=== PATIENT | female | born 1970 | race African-American/Black ===

== ENCOUNTER 2016-12-15 14:21 | Inpatient (IN) | payer OTHER ==
[~2016-12-15] VITALS: Ht 157.5 cm; Wt 86.2 kg
--- NOTE | 2016-12-15 14:29 | NUR ---
PT STATES SHE IS HAVING LOW/MIDDLE BACK PAIN SINCE WEDNESDAY. PT HAS BEEN TAKING ALEEVE FOR THE PAIN WITH LITTLE EFFECT. PT STATES SHE DOES NOT REMEMBER ANY INJURY AND STATES SHE THINKS IT MAY BE HER KIDNEYS. PT REPORTS SHE HAS LUPUS.
[2016-12-15 16:49] LABS: ABSOLUTE BASOPHIL COUNT 0 /CUMM (0.0-0.2); ABSOLUTE EOSINOPHIL COUNT 0.1 /CUMM (0.0-0.7); ABSOLUTE GRANULOCYTE CT 3.8 /CUMM (1.4-6.5); ABSOLUTE LYMPH COUNT 1.7 /CUMM (1.2-3.4); ABSOLUTE MONOCYTE COUNT 0.4 /CUMM (0.10-0.60); BASOPHIL % 0.6 % (0.0-2.0); EOSINOPHIL % 1.2 % (0-5); GRANULOCYTE % 63.2 % (42.2-75.2); HEMATOCRIT 32.5 % (37-47); MEAN CORPUSCULAR HGB 25.5 PG (27.0-31.0); MEAN CORPUSCULAR HGB CONC 32.3 G/DL (33.0-37.0); MEAN CORPUSCULAR VOLUME 78.9 FL (81.0-99.0); MEAN PLATELET VOLUME 13.3 FL (7.4-10.4); PLATELET COUNT 145 /CUMM (130-400); RBC DISTRIBUTION WIDTH 16.5 % (11.5-14.5); RED BLOOD CELL CT 4.12 /CUMM (4.20-5.40); WHITE BLOOD CELL COUNT 6.1 /CUMM (4.8-10.8)
--- NOTE | 2016-12-15 16:53 | NUR ---
LINE ESTABLISHED #20 TO [facility]. LABS SENT (LAV,SST,EXTRA BLUE.) MEDICATED PER EMAR.
--- NOTE | 2016-12-15 17:34 | ED GI/GU/ABDOMINAL COMPLAINT ---
History of Present Illness General Chief Complaint: Low Back Pain/Injury Stated Complaint: LOW/MIDDLE BACK PAIN Source: patient Exam Limitations: no limitations Allergies Coded Allergies: No Known Allergies (12/15/16) Reconcile Medications Alprazolam 0.5 MG TABLET 1 TAB PO PRN ANXIETY (Reported) Escitalopram Oxalate 20 MG TABLET 1 TAB PO DAILY MENTAL HEALTH (Reported) Ferrous Sulfate (IRON) 325 MG (65 MG IRON) TABLET 1 TAB PO DAILY SUPPLEMENT ( Reported) Multivitamin (Multi-Day Vitamins) 1 EACH TABLET 1 TAB PO DAILY SUPPLEMENT ( Reported) Triage Note: PT STATES SHE IS HAVING LOW/MIDDLE BACK PAIN SINCE WEDNESDAY. PT HAS BEEN TAKING ALEEVE FOR THE PAIN WITH LITTLE EFFECT. PT STATES SHE DOES NOT REMEMBER ANY INJURY AND STATES SHE THINKS IT MAY BE HER KIDNEYS. PT REPORTS SHE HAS LUPUS. Triage Nurses Notes Reviewed? yes ? N Is pt currently ? No HPI: This patient is a 46-year-old female who presented to the emergency department today for evaluation of back pain which started over the last couple of days. The patient reported that the pain has been worsening and gets up to a 10 out of 10. The pain is sharp and throbbing. It is located on both sides of her lower back. The patient denied any radiation of the pain. She reported that the pain has been constant since onset. She reported some intermittent nausea, but not currently. She denied any abdominal pain, vomiting, urinary burning, urgency, frequency, blood in the urine, fevers, chills, chest pain, or difficulty breathing. The patient tried taking 400 mg of Advil without any relief of her symptoms. The patient reported, "I am worried that it is my kidneys." She denied any trauma or falls. (KD REBOLLAR,SCOTT) Vital Signs & Intake/Output Vital Signs & Intake/Output Vital Signs Date Time Temp Pulse Resp B/P Pulse O2 O2 Flow FiO2 Ox Delivery Rate 12/16 1202 98.0 60 20 120/78 93 Room Air Room Air 12/16 1002 97.4 74 16 122/74 98 Room Air 12/16 0832 97.0 70 20 103/64 96 Room Air 12/16 0706 96.6 61 16 109/62 97 Room Air 12/16 0242 96.7 76 20 165/109 96 Room Air 12/15 2337 67 18 142/88 99 Room Air 12/15 1944 97.2 64 18 129/81 99 Room Air 12/15 1731 97.3 20 160/93 ED Intake and Output 12/16 0000 12/15 1200 Intake Total 1000 Output Total Balance 1000 Intake, IV 1000 Patient 190 lb Weight Past History Travel History Traveled to [place] past 21 day No Medical History Any Pertinent Medical History? see below for history Renal: LUPUS Blood Disorders: anemia Surgical History Surgical History: non-contributory Psychosocial History What is your primary language Armenian Tobacco Use: Current Daily Use Daily Tobacco Use Amount/Type: => 5 Cigarettes daily ETOH Use: occasional use Illicit Drug Use: marijuana Family History Hx Contributory? No (SCOTT YI PA-C) Review of Systems Review of Systems Constitutional: Reports: no symptoms. EENTM: Reports: no symptoms. Respiratory: Reports: no symptoms. Cardiovascular: Reports: no symptoms. GI: Reports: no symptoms. Genitourinary: Reports: no symptoms. Musculoskeletal: Reports: see HPI. Skin: Reports: no symptoms. Neurological/Psychological: Reports: no symptoms. All Other Systems: Reviewed and Negative (SCOTT YI PA-C) Physical Exam Physical Exam Gastrointestinal: normal bowel sounds, soft, non-tender, no organomegaly, NO REBOUND OR GUARDING. nO PERITONEAL SIGNS Comments: Well-developed well-nourished person in no acute distress HEENT: Normal EENT exam, head normocephalic, moist mucous membranes Neck: Supple, no lymphadenopathy Back: Normal inspection with no bony or muscular deformities. No midline tenderness. Bilateral CVA tenderness Cardiovascular: Regular rate and rhythm with no murmurs, rubs, or gallops Respiratory: Chest nontender. No respiratory distress. Breath sounds clear to auscultation bilaterally Extremity: Normal and equal pulses Neuro: Alert oriented x3, cranial nerves II through XII grossly intact. Skin: No appreciable rash on exposed skin, skin is warm and dry. Psych: Mood and affect is normal Core Measures ACS in differential dx? No Severe Sepsis Present: No Septic Shock Present: No (SCOTT YI PA-C) Progress Differential Diagnosis: AMI, appendicitis, biliary colic, bowel obstruction, colon cancer, cholecystitis, diverticulitis, gastritis, inflamm bowel dis, intrauterine , kidney stone, Charmaine-Landy tear, pancreatitis, PUD/GERD, perforated viscous, UTI/pyelo Diagnostic Imaging: Viewed by Me: CT Scan. Discussed w/RAD: CT Scan. Radiology Impression: PATIENT: FLAVIA PALMER PRESENT AGE: 46 PATIENT ACCOUNT NO: [id number] : 70 LOCATION: [facility] ORDERING PHYSICIAN: SCOTT YI PA-C SERVICE DATE: 12/15/16 EXAM TYPE: CAT - CT ABD & PELVIS W/O IV CONTRAS CT ABDOMEN AND PELVIS WITHOUT CONTRAST CLINICAL INFORMATION: Bilateral flank pain. COMPARISON: None available TECHNIQUE: Multidetector volumetric imaging was performed from the superior aspect of the liver through the pubic symphysis. Sagittal and coronal reformatted images were obtained on the technologist's workstation. FINDINGS: The lung bases are clear. Limited evaluation of the unenhanced liver, spleen, adrenal glands, gallbladder, and pancreas reveals no definite abnormality.The kidneys are symmetric in size without evidence of hydronephrosis or nephrolithiasis. Postoperative changes following gastric bypass with surgical sutures seen along the greater curvature of the stomach. The distal aspect of the stomach is distended with ingested debris. The large and small bowel are normal in caliber without evidence of mechanical obstruction. There is sigmoid diverticulosis and there are mild inflammatory changes adjacent to the sigmoid colon on image 56 of series 2, concerning for acute diverticulitis. The appendix is normal. There is no free air and there is no intra-abdominal free fluid. No mesenteric or retroperitoneal adenopathy. The pelvic viscera are normal. Surgical clips along the fallopian tubes bilaterally. No pelvic adenopathy. No free fluid within the pelvis. There are no acute osseous abnormalities. There is a small bowel containing lower ventral abdominal wall hernia without obstruction. Mild stranding of the fat within the hernia sac that is nonspecific. IMPRESSION: - Imaging findings suggest acute diverticulitis involving the proximal sigmoid colon. No pericolonic abscess and no free air. - There is a small bowel containing lower ventral abdominal wall hernia without obstruction. Mild stranding of the fat within the hernia sac that is nonspecific. - There are postoperative changes following gastric bypass surgery. The distal aspect of the stomach is distended with ingested material. There is no bowel obstruction. - No renal calculi. No hydroureteronephrosis. DICTATED BY: INOCENTE DE LUNA MD DATE/TIME DICTATED:12/15/161812 KETTLE COORDINATOR:VENTURA DATE/TIME TRANSCRIBED:12/15/161812 CONFIDENTIAL, DO NOT COPY WITHOUT APPROPRIATE AUTHORIZATION. <Electronically signed in Other Vendor System> SIGNED BY: INOCENTE DE LUNA MD 12/15/16 1822 Initial ED EKG: none Hand-Off Endorsed To: INOCENTE PAVON MD Pending: other Comments: 12/15/2016 6:35:45 PM: This patient has uncomplicated diverticulitis. I discussed this patient with Dr. FRANCOIS. We will give this patient 1 dose of IV Unasyn here in the emergency department. I was at the patient's bedside to update her on these results. She reported that she is still in significant pain after 4 mg of IV morphine. 12/15/2016 7:47:13 PM: Patient is still reporting pain after IV Dilaudid. Discussed this patient with Dr. Pavon. Recommended IV Toradol. 12/15/2016 9:35:46 PM: The patient reported that she is still having significant discomfort. Would like this patient to stay as an ED observation for pain management and IV antibiotics. She'll be discharged in the morning with by mouth antibiotics and pain medication. Have paged on-call case management to times to discuss this with them, but have not received a call back at this time. 12/15/2016 9:46:07 PM: I spoke with on-call trimming caser, Lisa. She agreed to ED observation. (KD REBOLLAR,SCOTT) Plan of Care: Orders Procedure Date/time Status Regular Diet 12/17 L Active Regular Diet 12/16 B Active Teach/Educate 12/16 1206 Active Nutritional Intake, Monitor 12/16 1206 Active Isolation 12/16 1206 Active Patient Care Conference 12/16 1206 Active Pathway - chart 12/16 1041 Active House Staff 12/16 1041 Active Code Status 12/16 1041 Active Patient Data 12/16 1026 Active OXYGEN SETUP (GEN) 12/16 0945 Active Saline Lock 12/16 0945 Active Admit to inpatient 12/16 0945 Active Vital Signs 12/16 0945 Active Activity/Ambulation 12/16 0945 Active Code Status 12/16 0945 Complete Discharge Patient 12/16 0942 Active VTE Mechanical Prophylaxis 12/16 UNK Active MRI-LUMBAR SPINE W & W/O CHOLO 12/[address] in observation 12/15 2249 Active Patient Data 12/15 2249 Active Intake & Output 12/15 1652 Active Add-on Test (ER Only) 12/15 1635 Active COMPREHENSIVE METABOLIC PANEL 12/15 1551 Complete CBC WITHOUT DIFFERENTIAL 12/15 1551 Complete Current Medications Sig/Immanuel Start time Last Medication Dose Stop Time Status Admin Alprazolam 0.5 MG BID 12/16 2200 AC (Xanax) 12/23 2159 Ampicillin Sodium/ 3,000 MG Q6H 12/16 1600 AC Sulbactam Sodium (Unasyn) Sodium Chloride 100 ML (Normal Saline 0.9%) Diphenhydramine HCl 25 MG ONCE ONE 12/16 1500 CAN (Benadryl) 12/16 1501 Escitalopram Oxalate 20 MG DAILY 12/16 1315 AC (Lexapro) Acetaminophen 650 MG Q6P PRN 12/16 1045 AC (Tylenol) Acetaminophen/ 1 TAB Q6P PRN 12/16 1045 AC Hydrocodone Bitart (Vicodin) Laboratory Tests 12/15/16 1632: Anion Gap 8, Estimated GFR 60, BUN/Creatinine Ratio 18.0, Glucose 83, Calcium 9.0, Total Bilirubin 0.5, AST 21, ALT 25, Alkaline Phosphatase 68, Total Protein 6.8, Albumin 3.7, Globulin 3.1, Albumin/Globulin Ratio 1.2, CBC w Diff NO MAN DIFF REQ, RBC 4.12 L, MCV 78.9 L, MCH 25.5 L, RDW 16.5 H, MPV 13.3 H, Gran % 63.2, Lymphocytes % 28.1, Monocytes % 6.9, Eosinophils % 1.2, Basophils % 0.6, Absolute Granulocytes 3.8, Absolute Lymphocytes 1.7, Absolute Monocytes 0.4, Absolute Eosinophils 0.1, Absolute Basophils 0, PUBS MCHC 32.3 L 12/15/16 1551: Urine Test Cancelled Departure Departure Condition: Stable Referrals: DIPTI TELLO,ALISA CORTEZ MD,ADE (PCP/Family) Additional Instructions: Take antibiotic as prescribed and for its full duration. Take tramadol as prescribed for pain. This medication may make you drowsy. Follow-up with your primary care physician. Return for any worsening symptoms or concerns. Please also call to make an appointment with the forestry faculty member whose information has been provided to you in this packet. Departure Forms: Customer Survey General Discharge Information Observation Note Physician Advisor Notified: LINSEY TELLO,IVIS Monae Place Patient In: ED Observation Rationale for Observation: My rational for observation is as follows [this patient is a 46-year-old female with a past medical history including lupus and anemia who presents to the emergency department today with back pain. Uncomplicated diverticulitis. This patient has received multiple doses of pain medication without any relief of her discomfort and pain. This patient warrants an ED observation for pain management and IV antibiotics. Close monitoring and trend labs as warranted.]. (KD REBOLLAR,SCOTT) Departure Time of Disposition: 946 Disposition: STILL A PATIENT Clinical Impression Primary Impression: Diverticulitis Qualifiers: Diverticulitis site: unspecified part of intestinal tract Diverticulitis bleeding: without bleeding Diverticulitis complication: without perforation or abscess Qualified Code: K57.92 - Diverticulitis of intestine, part unspecified, without perforation or abscess without bleeding Secondary Impressions: Microscopic hematuria Admission Note Spoke With: SARINA TELLO,BRIELLE Documentation of Exam: Documentation of any treatments & extenuating circumstances including Concerns Regarding Discharge (functional status, medication knowledge or non-compliance, living conditions, etc.) that warrant an admission rather than observation: IV antibiotics IV analgesia serial lab exam medication adjustment continuing care discharge planning PA/FRUIT STUFFER Co-Sign Statement Statement: ED Attending supervision documentation- x I saw and evaluated the patient. I have also reviewed all the pertinent lab results and diagnostic results. I agree with the findings and the plan of care as documented in the PA's/FRUIT STUFFER's documentation. [] I have reviewed the ED Record and agree with the PA's/FRUIT STUFFER's documentation. [] Additions or exceptions (if any) to the PAs/FRUIT STUFFER's note and plan are summarized below: [] (PRISCILA TELLO,SAMM) ED Attending Observation Initial Observation Note: I have seen and personally examined FLAVIA PALMER on 12/15/16 at 2250. I agree with the current emergency department documentation. The disposition (admission or discharge) is uncertain at this time, she needs a period of observation for the following reason(s): Intractable pain secondary to acute diverticulitis The ED Nurse caring for this patient has been personally informed as to what the patient is being observed for. (YANETH TELLO,INOCENTE Ovalle) Observation Re-Evaluation: I have reevaluated FLAVIA PALMER on 12/16/16 at 0946. The physical findings that support the continued need to observe this patient include still with intractable right flank pain. Observation Discharge: I have reevaluated FLAVIA PALMER on 12/16/16 at 0946. The patient is: (): Stable for discharge (x): To be admitted to Nursing Floor (): To be placed in Observation on Nursing Floor (): For transfer to other facility The patient was being observed for intractable pain due to diverticulitis As a result of that observation, I have determined will require hospitalization. (SAMM FRANCOIS MD) (): Stable for discharge (x): To be admitted to Nursing Floor (): To be placed in Observation on Nursing Floor (): For transfer to other facility The patient was being observed for intractable pain due to diverticulitis As a result of that observation, I have determined will require hospitalization. (SAMM FRANCOIS MD)
--- NOTE | 2016-12-15 17:45 | NUR ---
PT MEDICATED PER EMAR FOR PAIN. WAITING FOR CAT SCAN.
--- NOTE | 2016-12-15 18:29 | CT SCAN REPORT ---
CT ABDOMEN AND PELVIS WITHOUT CONTRAST CLINICAL INFORMATION: Bilateral flank pain. COMPARISON: None available TECHNIQUE: Multidetector volumetric imaging was performed from the superior aspect of the liver through the pubic symphysis. Sagittal and coronal reformatted images were obtained on the technologist's workstation. FINDINGS: The lung bases are clear. Limited evaluation of the unenhanced liver, spleen, adrenal glands, gallbladder, and pancreas reveals no definite abnormality.The kidneys are symmetric in size without evidence of hydronephrosis or nephrolithiasis. Postoperative changes following gastric bypass with surgical sutures seen along the greater curvature of the stomach. The distal aspect of the stomach is distended with ingested debris. The large and small bowel are normal in caliber without evidence of mechanical obstruction. There is sigmoid diverticulosis and there are mild inflammatory changes adjacent to the sigmoid colon on image 56 of series 2, concerning for acute diverticulitis. The appendix is normal. There is no free air and there is no intra-abdominal free fluid. No mesenteric or retroperitoneal adenopathy. The pelvic viscera are normal. Surgical clips along the fallopian tubes bilaterally. No pelvic adenopathy. No free fluid within the pelvis. There are no acute osseous abnormalities. There is a small bowel containing lower ventral abdominal wall hernia without obstruction. Mild stranding of the fat within the hernia sac that is nonspecific. IMPRESSION: - Imaging findings suggest acute diverticulitis involving the proximal sigmoid colon. No pericolonic abscess and no free air. - There is a small bowel containing lower ventral abdominal wall hernia without obstruction. Mild stranding of the fat within the hernia sac that is nonspecific. - There are postoperative changes following gastric bypass surgery. The distal aspect of the stomach is distended with ingested material. There is no bowel obstruction. - No renal calculi. No hydroureteronephrosis.
--- NOTE | 2016-12-15 18:39 | NUR ---
PA KD TO BEDSIDE TO BEDSIDE TO DISCUSS RESULTS AND POC.
--- NOTE | 2016-12-15 19:06 | NUR ---
PT MEDICATED PER EMAR.
[2016-12-15] MEDS ORDERED: ESCITALOPRAM OX20 MG PO (19:11)
[2016-12-15] MEDS ORDERED: IRON325 M3 PO (19:11)
[2016-12-15] MEDS ORDERED: MULTI-DAY VITA1 EACH PO (19:12)
[2016-12-15] MEDS ORDERED: ALPRAZOLAM0.5 M4 PO (19:12)
--- NOTE | 2016-12-15 20:38 | NUR ---
PT MEDICATED PER EMAR FOR CONTINUED PAIN. PT REPORTS MINIMAL RELIEF WITH PAIN AT THIS TIME. NURSING WILL CONTINUE TO MONITOR.
--- NOTE | 2016-12-15 21:13 | NUR ---
PT ASSISTED TO BEDSIDE COMMODE. PT CONTINUES TO MOVE SLOWLY AND REPORTS LITTLE RELIEF WITH PAIN AFTER PAIN MEDICATION.
[2016-12-15] MEDS ORDERED: AUGMENTIN 500-1 EACH PO (21:24)
[2016-12-15] MEDS ORDERED: TRAMADOL HCL50 M1 PO (21:24)
--- NOTE | 2016-12-15 22:22 | NUR ---
PT MOVED TO ROOM 7. PT VERBALIZES UNDERSTANDING OF POC AND ED OBS STATUS.
--- NOTE | 2016-12-16 02:55 | NUR ---
PATIENT STATES CURRENT PAIN 10/10, BP ELEVATED. MD AWARE. PATIENT PRN ORDER FOR MORPHINE (Q4H) NOT DUE UNTIL APPROX 1 HOUR. PATIENT MEDICATED W/ TORADOL PER ONE TIME ORDER PLACED BY MD WOLFE. TOLERATED WELL. PATIENT HAS CALL YANETH AT BEDSIDE.
--- NOTE | 2016-12-16 03:46 | NUR ---
PT UNABLE TO GET COMFORTABLE IN BED AND COMPLAINING OF 10/10 PAIN. PT MEDICATED WITH 6MG MORPHINE IV PER PRN ORDER.
--- NOTE | 2016-12-16 05:54 | NUR ---
PT RESTING ON STRETCHER. NORMAL RR NOTED. WILL CONTINUE TO MONITOR.
--- NOTE | 2016-12-16 07:19 | NUR ---
ASSUMED CARE AT THIS TIME, PT AWAKE ALERT AND ORIENTED, COMPLAINS OF ALL OVER ABD PAIN 8/10 AT THIS TIME , CRAMPING IN NATURE AND RADIATES INTO HER BACK, DENIES N/V AT THIS TIME, ABLE TO TOLERATE FLUIDS THROUGH OUT THE NIGHT. MEDICATED AT THIS TIME WITH PRN MORPHINE FOR PAIN
--- NOTE | 2016-12-16 08:25 | NUR ---
PT RESTING ON STRETCHER , STATES THAT PAIN 3/10 AT THIS TIME. CALL LIGHT IN REACH , FOOD TRAY AT BEDSIDE , PT STATES THAT SHE HAS NO APPETITE AT THIS TIME
--- NOTE | 2016-12-16 10:01 | NUR ---
DR FRANCOIS AT BEDSIDE AND DISCUSSED PLAN OF CARE WITH PT, PT AWARE THAT SHE IS TO BE ADMITTED TO HOSPITAL , IV UNASYN INFUSING AT THIS TIME, PT MEDICATED WITH VALIUM AND MORPHINE PER ORDER.
--- NOTE | 2016-12-16 10:33 | History & Physical ---
RAJEEV PURCELL MD 12/16/16 1033: General Information and HPI MD Statement: I have seen and personally examined FLAVIA PALMER and documented this H&P. The patient is a 46 year old F who presented with a patient stated chief complaint of []. 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 The patient being started 8 on 10 in the lower back area that was radiating towards the other side. She denied any numbness or tingling in the legs or any urinary or fecal incontinence. The patient made an appointment for her primary care physician yesterday but considering the pain was excruciating she decided to come to the emergency department for further evaluation. In the ER the patient had an abdominal CAT scan to rule out kidney stones which later showed acute diverticulitis in the sigmoid colon. She was evaluated and plans to be discharged from ER but then her pain was persistent and hence it was decided to admit her for 24 hours for further evaluation. The patient denied any nausea, abdominal pain, diarrhea, constipation in the last 1 week and since her stay in the emergency department. She recently completed a course of Augmentin for 7 days in October 2016 for an skin infection on the hand. No recent travels, fever, chills. Allergies/Medications Allergies: Coded Allergies: No Known Allergies (12/15/16) Past History Travel History Traveled to [place] past 21 day No Medical History Renal: LUPUS Blood Disorders: anemia History of CDIFF: No Isolation History: Standard Surgical History Surgical History: non-contributory Past Family/Social History Family History Relations & Conditions if any MOTHER Relation not specified for: FH: lupus Psychosocial History Smoking Status: Never Smoked ETOH Use: occasional use Illicit Drug Use: marijuana Review of Systems Review of Systems Constitutional: Reports: see HPI. EENTM: Reports: see HPI. Cardiovascular: Denies: chest pain, edema, orthopena, palpitations. Respiratory: Denies: cough, hemoptysis, orthopnea. Musculoskeletal: Reports: back pain, joint pain, joint swelling. Skin: Denies: change in skin color, change in hair/nails, dryness, erythema. Neurological/Psychological: Reports: depressed. Denies: cognitive dysfunction, dementia, emotional problems , headache, numbness. Exam & Diagnostic Data Last 24 Hrs of Vital Signs/I&O Vital Signs Date Time Temp Pulse Resp B/P Pulse O2 O2 Flow FiO2 Ox Delivery Rate 12/16 1002 97.4 74 16 122/74 98 Room Air 12/16 0832 97.0 70 20 103/64 96 Room Air 12/16 0706 96.6 61 16 109/62 97 Room Air 12/16 0242 96.7 76 20 165/109 96 Room Air 12/15 2337 67 18 142/88 99 Room Air 12/15 1944 97.2 64 18 129/81 99 Room Air 12/15 1731 97.3 20 160/93 12/15 1429 98.6 76 16 134/85 99 Room Air Intake & Output 12/16 1600 12/16 0800 12/16 0000 Intake Total 1000 Output Total Balance 1000 Intake, IV 1000 Physical Exam General Appearance Alert, Oriented X3, Cooperative Skin No Rashes, No Breakdown HEENT Atraumatic, PERRLA Neck Supple, No JVD, No thryomegaly Lymphatic Axillary nl, Cervical nl Cardiovascular Regular Rate, Normal S1, Normal S2 Lungs Clear to Auscultation, Normal Air Movement Abdomen ssoft and nontender normal bowel sounds. Neurological Normal Speech, Strength at 5/5 X4 Ext, Normal Tone Assessment/Plan Assessment: This is a 46-year-old female with a past medical history of lupus arthritis, depression, history of gastric surgery years back, endovascular repair of the descending aorta, who presented to the [facility] for persistent lower back pain and the CAT scan done in the ER showed acute diverticulitis in the absence of any GI symptoms. Vitals at the time of admission showed: Blood pressure 122/78, respiration rate of 18, saturation of 96% on room air, pulse rate of 78, afebrile, Labs shows no leukocytosis or bands, Hemoglobin of 10.5, and hematocrit of 32.5. EKG showed normal sinus rhythm CT abdomen pelvis showed: Imaging findings suggest acute diverticulitis involving the proximal sigmoid colon. No pericolonic abscess and no free air. There is a small bowel containing lower ventral abdominal wall hernia without obstruction. Mild stranding of the fat within the hernia sac that is nonspecific. There are postoperative changes following gastric bypass surgery. The distal aspect of the stomach is distended with ingested material. There is no bowel obstruction. No renal calculi. No hydroureteronephrosis. Assessment 1. Acute diverticulitis with significant imaging findings 2. Persistent lower back pain,unkown aetiology.D/D could be lumbar stenosis or Vertebral Fracture 3. History of SLE arthritis 4. History of depression 5. History of coarction of descending aorta status post endovascular repair 6. 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 They recommended wwe should do an MRI of lumbar spine to rule out any abcess or fluid collection. -Continue with IV Unasyn and plan to switch to by mouth Augmentin tomorrow for acute diverticulitis -IV fluids normal saline at 75 mL per hour IV Dilaudid for back pain -The patient is not nauseous and we can give him a trial for diet in the afternoon if she tolerates .-Continue Lexapro -DVT prophylaxis at all times Patient is full code As Ranked By This Provider Problem List: 1. Diverticulitis Qualifiers Diverticulitis site: unspecified part of intestinal tract Diverticulitis bleeding: without bleeding Diverticulitis complication: without perforation or abscess Qualified Code: K57.92 - Diverticulitis of intestine, part unspecified, without perforation or abscess without bleeding Core Measures/Miscellaneous Acute Coronary Syndrome ACS Diagnosis: No Cerebrovascular Accident CVA/TIA Diagnosis: No Congestive Heart Failure CHF Diagnosis: No Venous Thromboembolism VTE Risk Factors: Acute medical illness, Age > 40 VTE Prophylaxis Ordered Inpt: Pharm- Lovenox No Mech VTE prophylaxis d/t: No contraindications No VTE Pharm Prophylaxis d/t: No contraindications VTE Diagnosis: No VTE Type: NONE VTE Confirmed by (Test): NONE Severe Sepsis Severe Sepsis Present: No Septic Shock Septic Shock Present: No Miscellaneous Documentation Attending Case Discussed With: TRAN GARNER MD Primary Care Physician: ADE CORTEZ MD Patient sees these Specialists none Level of Patient Care: General Medicine TRAN GARNER MD 12/16/16 1509: General Information and HPI Allergies/Medications Home Med list Alprazolam 0.5 MG TABLET 1 TAB PO PRN ANXIETY (Reported) Amoxicillin/Potassium Clav (Augmentin 875-125 Tablet) 875 MG-125 MG TABLET 1 TAB PO BID diverticulitis Escitalopram Oxalate 20 MG TABLET 1 TAB PO DAILY MENTAL HEALTH (Reported) Ferrous Sulfate (IRON) 325 MG (65 MG IRON) TABLET 1 TAB PO DAILY SUPPLEMENT ( Reported) Multivitamin (Multi-Day Vitamins) 1 EACH TABLET 1 TAB PO DAILY SUPPLEMENT ( Reported) Attending MD Review Statement Attending Statement Attending MD Statement: examined this patient, discuss w/resident/PA/AGENCY SALES DEVELOPMENT ASSOCIATE, agreed w/resident/PA/AGENCY SALES DEVELOPMENT ASSOCIATE, reviewed EMR data (avail), reviewed images, amended to note Attending Assessment/Plan: The patient is a 46 yo female with h/o SLE, anxiety/depression and h/o descending aortic coarctation/endovascular stent placement (2011), and h/o gastric bypass surgery who presented in the [facility] on the day of admission with c/o 3 day history of back pain (06/03). On CT abd/pel did show evidence of sigmoid diverticulitis. The patient denied fever, chills, or abdominal pain symptoms. She was begun on Unasyn in the ED. She required IV narcotics for pain relief. She denied any h/o back injury or back pain in the past. No radicular symptoms. Physical Exam: VS: T 98.0, P 75, R 16, BP 134/85, PO 99% HEENT: eyes- PERRLA, EOMI erick- moist mucosa Neck: no JVD/bruits Chest: clear Cor: RRR, nl S1, S2, ?1/6 sys murm LSB Abd: BS+, soft, NT, - masses or HSM Ext: no edema, tenderness, pulses LE 2+ Neuro: alert & oriented x 3, non-focal exam Labs/Tests- as above. Impression/Plan: #Acute Back Pain- reviewed CT with radiology. No spinal or vascular issues noted. Concern with degree of pain. ED presumed secondary to diverticulitis. Plan: Will treat with narcotics as needed and follow pain. MRI of lumbar spine to exclude spinal problem. #Acute Sigmoid Diverticulitis- on CT. No abdominal pain, fever or leukocytosis on blood tests. Difficult to explain the above pain based on this. Plan: Will continue Unasyn and follow. Await above MRI. May need GI to see. #H/O SLE- not on treatment at present. Plan: Will observe. #Anxiety/Depression- on Escitalopram and Alprazolam. Plan: Continue usual meds.
--- NOTE | 2016-12-16 10:55 | NUR ---
HOUSE STAFF AT BEDSIDE
--- NOTE | 2016-12-16 11:00 | NUR ---
PT ADMITTED TO ROOM 215-2
--- NOTE | 2016-12-16 11:35 | NUR ---
REPORT TO FLOOR, PT MEDICATED AT THIS TIME FOR 8/10 BILATERAL BACK PAIN AND ABD PAIN, FLUIDS INFUSING PER ORDER VIA PUMP
--- NOTE | 2016-12-16 11:44 | NUR ---
PT TO FLOOR
[2016-12-16 12:02] VITALS: BP 120/78
--- NOTE | 2016-12-16 14:37 | NUR ---
PATIENT ADMITTED TO UNIT FROM ED. ARRIVED VIA STRETCHER, ALERT AND ORIENTATED X3. VSS. CARDIOPULMONARY STABLE. ABD DIST SOFT BS POS IN ALL FOUR QUADRANT. C/O LUMBAR PAIN 05/03. PATIENT DID WANT ANY MEDICATION AT THAT TIME. SHE RECENTLY RECEIVED IV DILAUDID IN ER PRIOR TO TRANSPORT TO FLOOR. DENIES NAUSEA. IV FLUIDS RUNNING. DIET ORDERED. ORIENTATED TO ROOM AND CALL LIGHT. WILL FOLLOW PLAN OF CARE.
--- NOTE | 2016-12-16 15:09 | Admission Certification ---
Admission Certification Certification Statement - As attending physician, I certify that at the time of - admission, based on clinical presentation, severity of - symptoms, need for further diagnostic testing and - therapeutic interventions, and risk of adverse outcomes - without in-hospital treatment, in my clinical assessment, - this patient requires an acute hospital stay for a minimum - of two nights or longer. I have also considered psychsocial - factors such as support system, advanced age, financial - issues, cognitive issues, and failed out-patient treatments, - past re-admission history, safety of patient, and lack of - compliance as applicable. Specific rationale supporting this admission is: The patient presents with acute sigmoid diverticulitis with severe low back pain. Being admitted for pain management and IV antibiotics. MRI of lumbar spine.
[2016-12-16 17:55] VITALS: BP 120/84
--- NOTE | 2016-12-16 21:43 | MRI REPORT ---
EXAMINATION: MR LUMBAR SPINE WITHOUT AND WITH CONTRAST CLINICAL INFORMATION: Persistent back pain. Looking for abscess or fluid collection. COMPARISON: None TECHNIQUE: MRI of the lumbar spine was obtained before and after intravenous administration of 18 mL OptiMARK. FINDINGS: There is normal lumbar lordosis. The vertebral heights, alignment and disc heights are normal. The disc signal is normal at all lumbar disc levels. There is no evidence of disc bulge, herniation or spinal stenosis at any of the disc levels. The neural foramina are patent bilaterally. Conus medullaris terminates at L1 and appears normal in morphology. The bone marrow signal and paravertebral soft tissues are normal. Postcontrast there is no abnormal enhancement in the bone marrow, spinal canal or the posterior spine soft tissues. Limited imaging of pelvis reveals an anteverted uterus with cervical nabothian cyst. Largest cyst measures 1.6 cm. There are several nonenhancing areas of low signal in the uterus suspicious for small fibroids. The uterus is anteverted. IMPRESSION: Unremarkable MRI lumbar spine with and without contrast. Especially there is no abnormal bone marrow signal, enhancing mass, abscess or disc herniation. Incidental findings of cervical nabothian cyst and nonenhancing areas of low signal in the uterus suggestive of fibroids. Correlate with ultrasound exam.
[2016-12-16 23:52] VITALS: BP 122/80
--- NOTE | 2016-12-17 07:31 | PN- Housestaff ---
JAZZY TELLO,RAJEEV 12/17/16 0730: Subjective Follow-up For: back pain, diverticulitis Subjective: patient has been doing well . She has persietent low back pain . She has been doing these Review of Systems Constitutional: Reports: see HPI. Objective Last 24 Hrs of Vital Signs/I&O Vital Signs Date Time Temp Pulse Resp B/P Pulse O2 O2 Flow FiO2 Ox Delivery Rate 12/17 0818 98.1 69 18 116/98 96 Room Air 12/16 2352 98.4 71 18 122/80 92 Room Air 12/16 1755 98.8 66 120/84 94 Room Air 12/16 1202 98.0 60 20 120/78 93 Room Air Room Air 12/16 1002 97.4 74 16 122/74 98 Room Air Intake & Output 12/17 1600 12/17 0800 12/17 0000 Intake Total 800 300 Output Total Balance 800 300 Intake, IV 800 300 Physical Exam General Appearance: Alert, Oriented X3, Cooperative Skin: No Rashes, No Breakdown HEENT: Atraumatic, PERRLA Neck: Supple, No JVD, No thryomegaly Lymphatic: Axillary nl, Cervical nl Cardiovascular: Regular Rate, Normal S1, Normal S2 Lungs: Clear to Auscultation, Normal Air Movement Abdomen: Normal Bowel Sounds, Soft, No Tenderness Neurological: Normal Gait, Normal Speech, Strength at 5/5 X4 Ext, Normal Tone Extremities: No Clubbing, No Cyanosis, No Edema Current Medications: Current Medications Sig/Immanuel Start time Last Medication Dose Route Stop Time Status Admin Acetaminophen 650 MG Q6P PRN 12/16 1045 AC PO Acetaminophen/ 1 TAB Q6P PRN 12/16 1045 AC Hydrocodone Bitart PO Alprazolam 0.5 MG BID 12/160 DC PO 12/23 2158 Alprazolam 0.5 MG Q12P PRN 12/16 2130 AC PO 12/23 2129 Amoxicillin/ 875 MG Q12 12/17 1000 UNVr Clavulanate Potassium PO Ampicillin Sodium/ 3,000 MG Q6H 12/16 1600 DC 12/17 Sulbactam Sodium IV 0327 Sodium Chloride 100 ML Ampicillin Sodium/ 3,000 MG ONCE ONE 12/16 0945 DC 12/16 Sulbactam Sodium IV 12/16 1014 0949 Sodium Chloride 100 ML Ampicillin Sodium/ 0 .STK-MED ONE 12/16 0945 DC Sulbactam Sodium .ROUTE Diazepam 0 .STK-MED ONE 12/16 0957 DC .ROUTE Diazepam 5 MG ONCE ONE 12/16 0945 DC 12/16 IV 12/16 0946 1000 Diphenhydramine HCl 1 GISEL Q6P PRN 12/16 2045 AC 12/16 TOP 2241 Diphenhydramine HCl 25 MG ONCE ONE 12/16 1515 DC 12/16 PO 12/16 1516 1514 Diphenhydramine HCl 25 MG ONCE ONE 12/16 1500 CAN IV 12/16 1501 Enoxaparin Sodium 40 MG DAILY 12/17 1000 DC SC Enoxaparin Sodium 40 MG DAILY 12/16 1200 AC 12/16 SC 1353 Escitalopram Oxalate 20 MG DAILY 12/17 1000 DC PO Escitalopram Oxalate 20 MG DAILY 12/16 1315 AC 12/16 PO 1740 Hydromorphone HCl 0 .STK-MED ONE 12/16 1122 DC .ROUTE Hydromorphone HCl 1 MG Q6P PRN 12/16 1045 DC 12/17 IV 0444 Influenza Virus 0.5 ML ONCE ONE 12/16 1245 DC Vaccine IM 12/16 1246 Morphine Sulfate 0 .STK-MED ONE 12/16 0957 DC .ROUTE Morphine Sulfate 4 MG ONCE ONE 12/16 0945 DC 12/16 IV 12/16 0946 1000 Morphine Sulfate 6 MG Q4 PRN 12/15 2200 AC 12/16 IV 0718 Sodium Chloride 1,000 ML ONCE ONE 12/16 2200 DC 12/16 IV 12/17 0759 2246 Sodium Chloride 1,000 ML ONCE ONE 12/16 1115 DC 12/16 IV 12/16 2114 1125 Assessment/Plan Assessment: The patient is a 46 yo female with h/o SLE, anxiety/depression and h/o descending aortic coarctation/endovascular stent placement (2011), and h/o gastric bypass surgery who presented in the [place] ED on the day of admission with c/o 3 day history of back pain (06/03). On CT abd/pel did show evidence of sigmoid diverticulitis. The patient denied fever, chills, or abdominal pain symptoms. She was begun on Unasyn in the ED. She required IV narcotics for pain relief. She denied any h/o back injury or back pain in the past. No radicular symptoms. Physical Exam: VS: T 98.0, P 75, R 16, BP 134/85, PO 99% HEENT: eyes- PERRLA, EOMI erick- moist mucosa Neck: no JVD/bruits Chest: clear Cor: RRR, nl S1, S2, ?1/6 sys murm LSB Abd: BS+, soft, NT, - masses or HSM Ext: no edema, tenderness, pulses LE 2+ Neuro: alert & oriented x 3, non-focal exam 1. Acute diverticulitis with significant imaging findings 2. Persistent lower back pain,unkown aetiology. 3. History of SLE arthritis 4. History of depression 5. History of coarction of descending aorta status post endovascular repair 6. History of gastric sleeve surgery status post bypass repair PLan: NO GI SX and hence will convert to PO Augmentin for the next 9 days(10 days in total) Po Percet for pain control 20 tablets will be given at the time of discharge ( Patient MRI results reviewed did not show any evidence of lumbar spinal abscess or fluid collection evident of nabothian cyst noted which need further ultrasound evaluation which can be done as an outpatient. Patient's CT DATABASE ADMIN records were reviewed Continue with lorazepam and Lexapro for the management of anxiety and depression Patient is stable for discharge today. The above plan was discussed in detail with the patient and she is in agreement. Problem List: 1. Diverticulitis Pain Ratin Pain Location: back pain Pain Goal: Pain 7 or less Pain Plan: po percocet Tomorrow's Labs & Rationales: none TRAN GARNER MD 12/17/16 1611: Attending MD Review Statement Attending Statement Attending MD Statement: examined this patient, discuss w/resident/PA/SHIPPING LEAD, agreed w/resident/PA/SHIPPING LEAD, discussed with nursing, reviewed images, amended to note Attending Assessment/Plan: The patient was seen and discussed with resident. Still with back pain. MRI negative. Will try NSAID/cyclobenzaprine. May represent mechanical back pain. PT consult.
[2016-12-17] MEDS ORDERED: AUGMENTIN 875-1 EACH PO ×2 (07:39→08:30)
[2016-12-17 08:18] VITALS: BP 116/98
--- NOTE | 2016-12-17 08:30 | Patient Discharge Instructions ---
Discharge Instructions General Discharge Information You were seen/treated for: back pain,acute diverticulitis Special Instructions: please f/u with your PCP in 1 week Incidental findings of cervical nabothian cyst and nonenhancing areas of low signal in the uterus suggestive of fibroids. Correlate with ultrasound exam. Acute Coronary Syndrome Inclusion Criteria At DC or during hospital stay patient has or had the following: ACS DIAGNOSIS No Discharge Core Measures Meds if any: Prescribed or Continued at Discharge Meds if any: NOT Prescribed or Continued at Discharge Congestive Heart Failure Inclusion Criteria At DC or during hospital stay patient has or had the following: CHF DIAGNOSIS No Discharge Core Measures Meds if any: Prescribed or Continued at Discharge Meds if any: NOT Prescribed or Continued at Discharge Cerebrovascular accident Inclusion Criteria At DC or during hospital stay patient has or had the following: CVA/TIA Diagnosis No Discharge Core Measures Meds if any: Prescribed or Continued at Discharge Meds if any: NOT Prescribed or Continued at Discharge Venous thromboembolism Inclusion Criteria VTE Diagnosis No VTE Type NONE VTE Confirmed by (Test) NONE Discharge Core Measures - Per Current guidelines, there needs to be overlap - treatment for the first 5 days of Warfarin therapy. - If discharged on Warfarin prior to 5 days of - overlap therapy, the patient will need to be - assessed for post discharge needs including - *Post discharge parental anticoagulation - *Warfarin and/or parental anticoagulation education - *Follow up date to check INR post discharge At least 5 days overlap therapy as Inpatient No Meds if any: Prescribed or Continued at Discharge Note: Overlap Therapy is Warfarin and Anticoagulant Meds if any: NOT Prescribed or Continued at Discharge
[2016-12-17] MEDS ORDERED: PERCOCET 10-321 EACH PO ×2 (08:34→09:16)
[2016-12-17 16:10] VITALS: BP 128/70
--- NOTE | 2016-12-17 16:29 | NUR ---
PHYSICAL THERAPY: Recieved consult orders, reviewed chart, spoke w/ RN Dina. Per medical records and RN report, patient is ambulating indpendently w/o devices, no loss of balance or unsteady gait noted. At this time, it is not clinically indicated that pt requires skilled acute P.T.; pt placed on hold. Please re-consult if patient mobility or medical status changes. Refer to Out-Patient physical therapy services to address intractable back pain as appropriate.
--- NOTE | 2016-12-17 18:37 | NUR ---
ALERT AND ORIENTED X 3. VITAL SIGNS STABLE. ON ROOM AIR MEDICATION GIVEN FOR ABD PAIN. DENIES CHEST PAIN. + PULSES. STEADY GAIT. PATIENT SHOWERING AT THIS TIME. SHOWER CHAIR PROVIDED. WILL CONTINUE TO MONITOR
--- NOTE | 2016-12-17 20:52 | Discharge Summary ---
Visit Information Visit Dates Admission Date: 12/16/16 Discharge Date: 12/18/16 Hospital Course Course Attending Physician: TRAN GARNER MD Primary Care Physician: DIEGO TELLO,ADE Hospital Course: The patient is a 46 yo female with h/o SLE, anxiety/depression and h/o descending aortic coarctation/endovascular stent placement (2011), and h/o gastric bypass surgery who presented in the [facility] ED on the day of admission with c/o 3 day history of back pain (06/03). On CT abd/pel did show evidence of sigmoid diverticulitis. The patient denied fever, chills, or abdominal pain symptoms. She was begun on Unasyn in the ED. She required IV narcotics for pain relief. She denied any h/o back injury or back pain in the past. No radicular symptoms. Physical Exam: VS: T 98.0, P 75, R 16, BP 134/85, PO 99% HEENT: eyes- PERRLA, EOMI erick- moist mucosa Neck: no JVD/bruits Chest: clear Cor: RRR, nl S1, S2, ?1/6 sys murm LSB Abd: BS+, soft, NT, - masses or HSM Ext: no edema, tenderness, pulses LE 2+ Neuro: alert & oriented x 3, non-focal exam The patient was evaluated and treated in the hospital for the following problems 1. Acute diverticulitis with radiological findings 2. Acute back pain negative IMAGING or neurological findings 3. History of anxiety and depression 4. History of SLE Hospital course The patient in the hospital with IV antibiotics. This was then later transitioned to by mouth Augmentin which the patient would require for a total of 10 days. For the patient's acute back pain patient had extensive imaging done including CT abdomen pelvis and MRI of the lumbar spine which was negative for any OSTEOarthritic changes in the vertebra Patient would require extensive pain medications for the pain control. The source and the etiology for the pain most likely was musculoskeletal She is being sent home on by mouth Flexeril, Porfirioocet,. The patient's MRI of the spine did show a small nabothian cyst in the cervix and hence needs to be further evaluated on nonemergent basis with her GLASSBLOWER. The patient was also given the images and the form of us DVD along with the discharge paperwork Allergies: Coded Allergies: No Known Allergies (12/15/16) Pertinent Lab Results: Laboratory Tests 12/15 12/15 1632 1551 Chemistry Sodium (137 - 145 mmol/L) 139 Potassium (3.5 - 5.1 mmol/L) 4.3 Chloride (98 - 107 mmol/L) 102 Carbon Dioxide (22 - 30 mmol/L) 29 Anion Gap (5 - 16) 8 BUN (7 - 17 mg/dL) 18 H Creatinine (0.5 - 1.0 mg/dL) 1.0 Estimated GFR (>60 ml/min) 60 BUN/Creatinine Ratio (7 - 25 %) 18.0 Glucose (65 - 99 mg/dL) 83 Calcium (8.4 - 10.2 mg/dL) 9.0 Total Bilirubin (0.2 - 1.3 mg/dL) 0.5 AST (14 - 36 U/L) 21 ALT (9 - 52 U/L) 25 Alkaline Phosphatase (<127 U/L) 68 Total Protein (6.3 - 8.2 g/dL) 6.8 Albumin (3.5 - 5.0 g/dL) 3.7 Globulin (1.9 - 4.2 gm/dL) 3.1 Albumin/Globulin Ratio (1.1 - 2.2 %) 1.2 Hematology CBC w Diff NO MAN DIFF REQ WBC (4.8 - 10.8 /CUMM) 6.1 RBC (4.20 - 5.40 /CUMM) 4.12 L Hgb (12.0 - 16.0 G/DL) 10.5 L Hct (37 - 47 %) 32.5 L MCV (81.0 - 99.0 FL) 78.9 L MCH (27.0 - 31.0 PG) 25.5 L RDW (11.5 - 14.5 %) 16.5 H Plt Count (130 - 400 /CUMM) 145 MPV (7.4 - 10.4 FL) 13.3 H Gran % (42.2 - 75.2 %) 63.2 Lymphocytes % (20.5 - 51.1 %) 28.1 Monocytes % (1.7 - 9.3 %) 6.9 Eosinophils % (0 - 5 %) 1.2 Basophils % (0.0 - 2.0 %) 0.6 Absolute Granulocytes (1.4 - 6.5 /CUMM) 3.8 Absolute Lymphocytes (1.2 - 3.4 /CUMM) 1.7 Absolute Monocytes (0.10 - 0.60 /CUMM) 0.4 Absolute Eosinophils (0.0 - 0.7 /CUMM) 0.1 Absolute Basophils (0.0 - 0.2 /CUMM) 0 PUBS MCHC (33.0 - 37.0 G/DL) 32.3 L Urines Urine Test Cancelled 12/15 1448 Urines Urine Color (YEL,AMB,STR) YEL Urine Clarity (CLEAR) CLEAR Urine pH (5.0 - 8.0) 6.0 Ur Specific [place] (1.001 - 1.035) 1.020 Urine Protein (NEG,<30 MG/DL) NEG Urine Ketones (NEG) NEG Urine Nitrite (NEG) NEG Urine Bilirubin (NEG) NEG Urine Urobilinogen (0.1 - 1.0 EU/dl) 0.2 Ur Leukocyte Esterase (NEG) NEG Ur Microscopic SEDIMENT EXAMINED Urine RBC (0 - 5 /HPF) 25-50 H Ur Epithelial Cells (NONE,FEW) FEW Urine Hemoglobin (NEG) LARGE H Urine Glucose (N MG/DL) NEG Disposition Summary Disposition Principal Diagnosis: Acute diverticulitis Additional Diagnosis: Acute back pain Discharge Disposition: home or self care Discharge Instructions General Discharge Information Code Status: Full Code Patient's Diet: As tolerated Patient's Activity: As tolerated Follow-Up Instructions/Appts: Follow-up with your primary care physician in one week Follow-up with your GLASS[facility] Medications at Discharge Discharge Medications: Continue taking these medications: Escitalopram Oxalate (Escitalopram Oxalate) 20 MG TABLET 1 Tablet ORAL DAILY Qty = 90 Comments: Last Taken: 12/18/16 Time: 9:42 AM Ferrous Sulfate (IRON) 325 MG (65 MG IRON) TABLET 1 Tablet ORAL DAILY Comments: NOT GIVEN IN HOSPITAL Alprazolam (Alprazolam) 0.5 MG TABLET 1 Tablet ORAL as needed for ANXIETY Qty = 60 Comments: Last Taken:12/17/16 Time:9:25A.M Multivitamin (Multi-Day Vitamins) 1 EACH TABLET 1 Tablet ORAL DAILY Comments: NOT GIVEN IN HOSPITAL Start taking the following new medications: Oxycodone HCl/Acetaminophen (Percocet 10-325 MG Tablet) 10 MG-325 MG TABLET 1 Tablet ORAL 4 TIMES A DAY as needed for BACK PAIN Qty = 20 No Refills Comments: Last Taken: 12/18/16 Time: 5:42A.M Amoxicillin/Potassium Clav (Augmentin 875-125 Tablet) 875 MG-125 MG TABLET 1 Tablet ORAL TWICE DAILY Qty = 16 No Refills Comments: Last Taken: 12/18/16 Time: 9:42A.M Cyclobenzaprine HCl (Cyclobenzaprine HCl) 10 MG TABLET 10 Milligram ORAL TWICE DAILY Qty = 20 No Refills Comments: Last Taken:12/18/16 Time: 9:42A.M Naproxen (Naproxen) 500 MG TABLET 500 Milligram ORAL THREE TIMES DAILY Qty = 30 No Refills Comments: Last Taken:12/18/16 Time: 9:42A.M Copies To: DIEGO TELLO,ADE Attending MD Review Statement Documenting Attending: TRAN GARNER MD Other Findings: The patient presented with low back pain and on CT was found to have sigmoid diverticulitis. Abdominal exam was benign (non-tender) and no fever or leukocytosis. Did CT and MRI of back. May represent musculoskeletal pain. Sent home on antibiotic and told to follow-up with PCP. If back pain not resolving on NSAIDS consider further workup (?manifestation of lupus). To be followed up by Dr. Garcia.
[2016-12-17 23:51] VITALS: BP 118/82
--- NOTE | 2016-12-18 04:57 | PN- Housestaff ---
RAJEEV PURCELL MD 12/18/16 0456: Subjective Follow-up For: back pain acute diverticulitis Complaints: no complaints Subjective: The patient is in not in acute distress. Complains that her pain is better. She is willing to go home by today. Remained afebrile overnight no evidence overnight as well. Review of Systems Constitutional: Reports: see HPI. Objective Last 24 Hrs of Vital Signs/I&O Vital Signs Date Time Temp Pulse Resp B/P Pulse O2 O2 Flow FiO2 Ox Delivery Rate 12/17 2351 97.9 67 20 118/82 94 12/17 1610 97.9 71 19 128/70 93 12/17 0818 98.1 69 18 116/98 96 Room Air Intake & Output 12/18 1600 12/18 0800 12/18 0000 Intake Total 500 Output Total Balance 500 Intake, Oral 500 Number 1 Bowel Movements Physical Exam General Appearance: Alert, Oriented X3, Cooperative Skin: No Rashes, No Breakdown HEENT: Atraumatic, PERRLA Neck: Supple, No JVD, No thryomegaly Lymphatic: Axillary nl, Cervical nl Cardiovascular: Normal S1, Normal S2 Lungs: Clear to Auscultation, Normal Air Movement Abdomen: Normal Bowel Sounds, Soft, No Tenderness Assessment/Plan Assessment: The patient is a 46 yo female with h/o SLE, anxiety/depression and h/o descending aortic coarctation/endovascular stent placement (2011), and h/o gastric bypass surgery who presented in the [facility] ED on the day of admission with c/o 3 day history of back pain (06/03). On CT abd/pel did show evidence of sigmoid diverticulitis. The patient denied fever, chills, or abdominal pain symptoms. She was begun on Unasyn in the ED. She required IV narcotics for pain relief. She denied any h/o back injury or back pain in the past. No radicular symptoms. Physical Exam: VS: T 98.0, P 75, R 16, BP 134/85, PO 99% HEENT: eyes- PERRLA, EOMI erick- moist mucosa Neck: no JVD/bruits Chest: clear Cor: RRR, nl S1, S2, ?1/6 sys murm LSB Abd: BS+, soft, NT, - masses or HSM Ext: no edema, tenderness, pulses LE 2+ Neuro: alert & oriented x 3, non-focal exam 1. Acute diverticulitis with significant imaging findings 2. Persistent lower back pain,unkown aetiology. 3. History of SLE arthritis 4. History of depression 5. History of coarction of descending aorta status post endovascular repair 6. History of gastric sleeve surgery status post bypass repair PLan: NO GI SX by mouth Augmentin for the next 8 days, Pain control with by mouth Percocet, 20 tablets, naproxen 500 mg 3 times a day, and cyclobenzaprine Patient MRI results reviewed did not show any evidence of lumbar spinal abscess or fluid collection evident of nabothian cyst noted which need further ultrasound evaluation which can be done as an outpatient. Patient's CT [facility] [employer] records were reviewed did not show any suspicious benzodiazepine overdose Continue with lorazepam and Lexapro for the management of anxiety and depression Patient is stable for discharge today. The above plan was discussed in detail with the patient and she is in agreement. Problem List: 1. Diverticulitis Pain Ratin Pain Location: back pain Pain Goal: Remain pain free Pain Plan: By mouth naproxen, Benzapril, Tomorrow's Labs & Rationales: No labs TRAN GARNER MD 12/18/16 1440: Attending MD Review Statement Attending Statement Attending MD Statement: examined this patient, discuss w/resident/PA/[employer] TRUCK [employer]IVER, agreed w/resident/PA/E[employer] LIFT TRUCK DRIVER, reviewed EMR data (avail), discussed with nursing, amended to note Attending Assessment/Plan: The patient was seen and discussed with house staff. Agree with plan of care as outlined. OK to discharge today.
[2016-12-18] MEDS ORDERED: NAPROXEN500 M2 PO (08:05)
[2016-12-18] MEDS ORDERED: CYCLOBENZAPRINE10 M1 PO (08:05)
[2016-12-18] MEDS ORDERED: AUGMENTIN 875-1 EACH PO (08:05)
[2016-12-18 08:27] VITALS: BP 116/60
== END 2016-12-18 11:33 | DRG 392 ==
LOC: ENRESERVDT → ENRESERVTM → ERH 14:21 → ERHI 22:49 → ERH 22:49 → ERHI 12-16 09:45 → 2NB 12-16 09:45 → ERHI 12-16 09:45 → DELPENDDIS 12-16 09:45 → ENPENDDIS 12-16 09:45 → EDBEDREQDT 12-16 10:29 → EDBEDREQTM 12-16 10:29 → EDBEDREQSVC 12-16 10:29 → EDBEDREQ 12-16 10:29 → ERHI 12-16 10:42 → 2NB 12-16 11:44
PROVIDERS: Physician Assistant; ADMIT Internal Medicine
DX: K57.32 Diverticulitis of large intestine without perforation or abscess without bleeding (principal); M32.9 Systemic lupus erythematosus, unspecified; M54.5 Low back pain; F41.9 Anxiety disorder, unspecified; F32.9 Major depressive disorder, single episode, unspecified; Z98.84 Bariatric surgery status
CPT/HCPCS: 2NBSP; 72149; 72158; 74176; 81001; 81025; 96361; 96374; 96375; 96376; A9579; J1200; J1650; Q2036